=== PATIENT | female | born 1980 | race Two or more races ===

== ENCOUNTER → 2020-10-23 | Outpatient (CLI) | payer OTHER | END | disposition home or self-care (01) | LOC: OFIC 805 09:31 | PROVIDERS: ATTEND Otolaryngology | DX: H90.3 Sensorineural hearing loss, bilateral (principal) ==

== ENCOUNTER 2021-01-11 14:58 | Emergency (ER) | payer OTHER ==
[~2021-01-11] VITALS: Ht 172.7 cm; Wt 136.1 kg
== END 2021-01-11 19:20 | disposition home or self-care (01) ==
LOC: ER 14:58
DX: K04.6 Periapical abscess with sinus (principal); Z03.818 Encounter for observation for suspected exposure to other biological agents ruled out

== ENCOUNTER 2021-01-16 09:32 | Outpatient (CLI) | payer OTHER | END 2021-01-16 16:24 | disposition home or self-care (01) | LOC: OFIC 805 09:32 | PROVIDERS: ATTEND Otolaryngology | DX: R22.1 Localized swelling, mass and lump, neck (principal) ==

== ENCOUNTER 2021-01-23 11:16 | Outpatient (CLI) | payer OTHER | END 2021-01-23 17:23 | disposition home or self-care (01) | LOC: OFIC 805 11:16 | PROVIDERS: ATTEND Otolaryngology | DX: R22.1 Localized swelling, mass and lump, neck (principal) ==

== ENCOUNTER 2022-03-16 10:21 | Emergency (ER) | payer OTHER ==
[~2022-03-16] VITALS: Ht 170.2 cm; Wt 149.2 kg
== END 2022-03-16 13:19 | disposition home or self-care (01) ==
LOC: ER 10:21
DX: O20.9 Hemorrhage in early pregnancy, unspecified (principal); Z3A.01 Less than 8 weeks gestation of pregnancy; Z88.6 Allergy status to analgesic agent